=== PATIENT | male | born 1975 | race Caucasian/White ===

== ENCOUNTER 2020-12-04 09:00 | Outpatient (REF) | payer BC, SELFPAY ==
[2020-12-04 10:55] LABS: Alanine Aminotransferase 18 U/L (0-40); Albumin Level 4.5 g/dL (3.5-5.0); Alkaline Phosphatase 85 U/L (39-117); Aspartate Amino Transferase 21 U/L (5-37); Bilirubin Direct < 0.2 mg/dL (0.0-0.5); Bilirubin Total 0.5 mg/dL (0.0-1.0)
== END 2020-12-04 09:01 | disposition home or self-care (01) ==
LOC: HO.LAB 09:00
PROVIDERS: PCP Internal Medicine; Visit Provider Psychiatry & Neurology Neurology
DX: G40.909 Epilepsy, unspecified, not intractable, without status epilepticus (principal)
CPT/HCPCS: 36415; 80076

== ENCOUNTER 2023-04-09 08:42 | Day surgery (SDC) | payer BC, SELFPAY ==
--- NOTE | 2023-04-08 11:42 | P.CONAN_ITS ---
Documented by User: Shirlene Bonilla NP 04/08/23 11:42 HPI - Anesthesia Eval Consult details Narrative: 47yo M for Colonoscopy [facility] [place] Past Medical History Medical History (Updated 04/08/23 @ 11:42 by Shirlene Bonilla NP) Seizures SIMRAN on CPAP Surgical History Surgical History (Updated 04/08/23 @ 11:42 by Shirlene Bonilla NP) H/O heart surgery Social History Are you a primary care analyst to a significant other at home: No Do you presently have visiting nurse or other home services: No Patient Tobacco Use Status: Never used Tobacco Are you DNR?: No Advance Directives: No Advance Directives Information Provided: Yes Recently lost weight without trying: No Nutrition Risks: No Nutritional Risk Meds Allergies Allergy/AdvReac Type Severity Reaction Status Date / Time No Known Allergies Allergy Verified 04/08/23 11:41 Home Medications Medication Instructions Recorded Confirmed Last Taken Type Fish Oil 04/08/23 04/02/23 History multivitamin 04/08/23 04/02/23 History phenytoin sodium extended 100 mg mg PO 04/08/23 04/09/23 History capsule Exam Exam Date and Time: April 08, 2023 114 Assessment and Plan Assessment Anesthesia Assessment: Chart Reviewed Documented by User: Chao Mac MD 05/13/23 18:43 [facility] [place] Past Medical History Medical History (Updated 04/08/23 @ 11:42 by Shirlene Bonilla NP) Seizures SIMRAN on CPAP Functional capacity: independent ambulation Family History Family history of problems with anesthesia: No Surgical History Surgical History (Updated 04/08/23 @ 11:42 by Shirlene Bonilla NP) H/O heart surgery History of Problems with Anesthesia: No Social History Are you a primary care analyst to a significant other at home: No Do you presently have visiting nurse or other home services: No Patient Tobacco Use Status: Never used Tobacco Are you DNR?: No Advance Directives: No Advance Directives Information Provided: Yes Recently lost weight without trying: No Nutrition Risks: No Nutritional Risk Meds Allergies Allergy/AdvReac Type Severity Reaction Status Date / Time No Known Allergies Allergy Verified 04/08/23 11:41 Home Medications Medication Instructions Recorded Confirmed Last Taken Type Fish Oil 04/08/23 04/02/23 History multivitamin 04/08/23 04/02/23 History phenytoin sodium extended 100 mg mg PO 04/08/23 04/09/23 History capsule Exam Airway Mallampati Class: IV Loose/Missing/Broken Teeth: Yes (chipped teeth , poor dentition ) Assessment and Plan Assessment Anesthesia Assessment: Anesthesia Plan Discussed Final Anesthetic Review Family History of Problems with Anesthesia: No History of Problems with Anesthesia: No NPO: Yes ASA Class: III Final Preanesthetic Review: Meds/Allgs Chart Reviewed, Consent Obtained/Reviewed and Anes Risks/Benef Reviewed Patient Risk: Intermediate Procedure Risk: Intermediate Anesthetic Plan Anesthetic Plan: MAC: and Agree w/ Assess. and Plan Disposition: Standard PACU
[2023-04-09 08:50] VITALS: BMI 38.7
[2023-04-09] MEDS: Lactated Ringers 1,000 ML 100 ML IVCONT (09:16)
[2023-04-09 09:18] VITALS: BP 142/83; PULSE 84; RESP 18; TEMP 36.7; O2SAT 96
--- NOTE | 2023-04-09 10:47 | P.BOP_ITS ---
Brief Operative Note Date of Service: 04/09/23 Pre-op diagnosis: Screening Post-op diagnosis: other (Internal hemorrhoids) Procedure: Colonoscopy to the cecum and TI Surgeon: Lasha Boucher MD Anesthesia: MAC Was an Certification And Selection Specialist used for this Procedure?: No Estimated blood loss (mL): 0 Pathology: none sent Condition: stable Disposition: PACU
[2023-04-09 10:50] VITALS: BP 110/62; PULSE 83; RESP 13; TEMP 36.3; O2SAT 97
[2023-04-09 11:05] VITALS: BP 118/65; PULSE 70; RESP 16; TEMP 36.1; O2SAT 99
--- NOTE | 2023-04-09 11:31 | OP_ITS ---
DATE OF SERVICE: 04/09/2023 SURGEON: Lasha Boucher MD INDICATIONS: The patient presents for evaluation of colorectal cancer screening. Full consent has been obtained from him for this, including risks of bleeding and perforation. PREOPERATIVE DIAGNOSIS: Colorectal cancer screening. POSTOPERATIVE DIAGNOSIS: PROCEDURE PERFORMED: Colonoscopy to the cecum and terminal ileum. ESTIMATED BLOOD LOSS: COMPLICATIONS: ANESTHESIA: Monitored anesthesia care. ASSISTANTS: SPECIMENS: POSTOPERATIVE DIAGNOSES: Colorectal cancer screening, small internal hemorrhoids. DESCRIPTION OF PROCEDURE: The patient was placed in the left lateral decubitus position. The digital rectal exam revealed no abnormalities. The Olympus video pediatric colonoscope was entered into the rectum and advanced easily to the cecum. Once in the cecum, I did identify normal-appearing cecal pouch with appendiceal orifice and a normal-appearing ileocecal valve. The terminal ileum was cannulated and appeared normal. Scope was withdrawn back in the colon. The entire cecum and ileocecal valve appeared normal. The scope was slowly withdrawn assessing all mucosal surfaces carefully. Preparation was excellent. I did not visualize any sign of polyps, colitis, nor angiodysplasia. In the rectum, scope was retroflexed visualizing internal hemorrhoids but no other pathology. The rectal mucosa appeared normal. Scope was straightened and withdrawn from the patient. He tolerated the procedure well and was returned to the recovery area in stable condition. IMPRESSION: Internal hemorrhoids, otherwise normal screening colonoscopy. PLAN: I would recommend a repeat colonoscopy in 10 years for further screening. He will otherwise see me on a p.r.n. basis. MD PANFILO Avila/CHRISTINE / [id number]
== END 2023-04-09 11:38 | disposition home or self-care (01) ==
PROVIDERS: PCP Internal Medicine; Visit Provider Internal Medicine
PROC: 0DJD8ZZ Inspection of Lower Intestinal Tract, Via Natural or Artificial Opening Endoscopic (ICD-10-PCS; CPT 45378; principal; 2023-04-09 09:50)
DX: Z12.11 Encounter for screening for malignant neoplasm of colon (principal); K64.8 Other hemorrhoids; G40.909 Epilepsy, unspecified, not intractable, without status epilepticus; G47.33 Obstructive sleep apnea (adult) (pediatric); Z99.89 Dependence on other enabling machines and devices; Z79.899 Other long term (current) drug therapy; Z98.890 Other specified postprocedural states
CPT/HCPCS: 45378; J2250